=== PATIENT | male | born 1945 | race American Indian/Alaskan Native ===

== ENCOUNTER 2017-06-03 11:50 | Outpatient (CLI) | payer OTHER ==
--- NOTE | 2017-06-03 12:51 | Fluoroscopy Report ---
BARIUM SWALLOW: History: Dysphagia with solids. Findings: [employer] film of the chest is unremarkable. Deglutition is normal. No evidence for aspiration. The cervical and thoracic esophagus are normal caliber and mucosal pattern throughout. No evidence for mass or stricture. A small sliding hiatal hernia was witnessed. Occasional tertiary contractions in the distal esophagus were also seen consistent with mild esophagitis. No reflux was witnessed during this exam. IMPRESSION: Small sliding hiatal hernia. Occasional esophageal spasm. No focal mass or stricture.
== END 2017-06-03 11:51 | disposition home or self-care (01) ==
LOC: FLUORO 11:50
DX: K44.9 Diaphragmatic hernia without obstruction or gangrene (principal); K22.8 Other specified diseases of esophagus; R13.10 Dysphagia, unspecified; I10 Essential (primary) hypertension
CPT/HCPCS: 74220